=== PATIENT | female | born 1960 | race Caucasian/White ===

== ENCOUNTER → 2025-03-04 09:46 | Outpatient (REF) | payer OTHER, SELFPAY | LOC: EMG 09:46 | PROVIDERS: ATTENDING PHYSICIAN Orthopaedic Surgery; FAMILY PHYSICIAN Family Medicine | DX: R20.0 Anesthesia of skin (principal) | CPT/HCPCS: 95886; 95910 ==

== ENCOUNTER → 2025-07-19 14:37 | Outpatient (REF) | payer OTHER, SELFPAY | LOC: RAD 14:37 | PROVIDERS: ATTENDING PHYSICIAN Internal Medicine Rheumatology; FAMILY PHYSICIAN Family Medicine | DX: M81.0 Age-related osteoporosis without current pathological fracture (principal) | CPT/HCPCS: 77080 ==